=== PATIENT | female | born 2000 | race Two or more races ===

== ENCOUNTER 2024-07-27 19:08 | Emergency (ER) | payer OTHER ==
[~2024-07-27] VITALS: Ht 149.9 cm; Wt 63.6 kg
[2024-07-27] MEDS ORDERED: IBUP-45 PO (19:17)
[2024-07-27] MEDS ORDERED: LORA10TA7 PO (19:17)
[2024-07-27 19:20] VITALS: TEMP 99
[2024-07-27 19:23] LABS: COVID AG,FIA SOURCE NASAL SWAB
[2024-07-27 19:41] LABS: INFLUENZA TYPE A NEGATIVE FOR TYPE A (NEGATIVE); INFLUENZA TYPE B NEGATIVE FOR TYPE B (NEGATIVE); SARS-COV2 (COVID) ANTIGEN,FIA Negative (Negative)
[2024-07-27 21:05] VITALS: BP 147/70; PULSE 95; RESP 20; O2SAT 98
[2024-07-27] MEDS ORDERED: BENZ-227 PO (21:05)
[2024-07-27] MEDS ORDERED: GUAIF10 PO (21:05)
== END 2024-07-27 21:20 | disposition home or self-care (01) ==
LOC: EMS 19:23
DX: J40 Bronchitis, not specified as acute or chronic (principal); R05.9 Cough, unspecified; J02.9 Acute pharyngitis, unspecified; R51.9 Headache, unspecified; F12.90 Cannabis use, unspecified, uncomplicated; Z20.822 Contact with and (suspected) exposure to COVID-19
CPT/HCPCS: 71045; 84703; 87804; 99284; 36415-L1; 36415-TC